=== PATIENT | male | born 1980 | race Caucasian/White ===

== ENCOUNTER 2019-11-18 20:40 | Observation (INO) | payer SELFPAY ==
--- NOTE | ~2019-11-18 | XR_ITS ---
XR abdomen/kub 1V DATE: 11/19/2019 07:21 INDICATION: Glass bile in stomach TECHNIQUE: Portable supine AP view on 11/19/2019 at 0718 hours COMPARISON: None FINDINGS: There is an approximately 1.5 x 5 cm radiopaque foreign body consistent with orally ingeste d glass bile overlying the upper midabdomen, situated within the distal stomach most likely. No evidence of bowel obstruction. The psoas shadows are intact. No visceromegaly or significant abnor mal calcification is noted. IMPRESSION: Radiopaque glass vial overlying the lower gastric body Reviewed, dictated and finalized at [facility]. Reviewed, dictated and finalized at [facility]. NDER GRINDER
--- NOTE | ~2019-11-18 | XR_ITS ---
EXAMINATION: XR chest 2V DATE: 11/18/2019 21:31 INDICATION: Swallowed a glass while. No breathing complaints. TECHNIQUE: PA and lateral views of the chest were obtained. COMPARISON: None FINDINGS: A small glass mild projects over the proximal body of the stomach in the left upper quadrant. Moderat e biapical pleural-parenchymal scarring. Linear discoid atelectasis at the lateral right mid to upper lung zone. No pulmonary edema, pleural effusion or pneumothorax. The cardiomediastinal silhouette is normal. Visualized bones and soft tissues are unremarkable. IMPRESSION: 1. Small glass fall in the proximal stomach. 2. Moderate biapical pleural-parenchymal scarring and linear discoid atelectasis at the right mid to upper lung zone. Reviewed, dictated and finalized at location [facility]. LOGUE COMPILER IMPRESSION: 1. Small glass fall in the proximal stomach. 2. Moderate biapical pleural-parenchymal scarring and linear discoid atelectasi s at the right mid to upper lung zone.
[2019-11-18 20:40] VITALS: BP 123/81; PULSE 117; RESP 18; TEMP 36.7; O2SAT 100
--- NOTE | 2019-11-18 21:15 | ECG_ITS ---
Measurements Intervals [place] Rate: 95 P: 43 IL: 137 QRS: 75 QRSD: 86 T: 49 QT: 305 QTc: 384 Interpretive Statements SINUS RHYTHM NORMAL ECG Electronically Signed On 11-19-2019 7:32:54 FLOW FLOOR ATTENDANT by Gorge Sanchez D.O.
[2019-11-18 21:30] LABS: Basophils Absolute Auto 0.1 K/mm3 (0.0-0.1); Basophils Percent Auto 0.6 % (0.2-1.2); Eosinophils Absolute Auto 0.4 K/mm3 (0-0.3); Eosinophils Percent Auto 2.4 % (0-4.4); Hematocrit 46.6 % (42.0-52.0); Hemoglobin 15.8 g/dL (14.0-18.0); Immature Granulocyte Absolute 0.06 K/mm3 (0.00-0.031); Immature Granulocyte Percent A 0.4 % (0-0.5); Lymphocytes Absolute Auto 1.46 K/mm3 (0.9-3.2); Mean Corpuscular HGB Conc 33.9 g/dl (32-36); Mean Corpuscular Hemoglobin 28.8 pg (26-34); Mean Corpuscular Volume 84.9 fl (80-100); Mean Platelet Volume 10.6 fl (7.4-10.4); Monocytes Absolute Auto 1.1 K/mm3 (0.1-0.6); Monocytes Percent Auto 7.2 % (2.6-8.5); Neutrophils Absolute Auto 11.6 K/mm3 (1.3-6.7); Neutrophils Percent Auto 79.4 % (45.5-73.1); Platelet Count Result 282 k/mm3 (150-375); Red Blood Count 5.49 M/mm3 (4.6-6.20); Red Cell Distribution Width 12.2 % (11.5-14.5); White Blood Count 14.6 K/mm3 (4.5-10.0)
[2019-11-18 21:43] LABS: Acetaminophen < 10 ug/mL (10-30); Ethanol < 10 mg/dL (<10); Salicylate < 1.0 mg/dL (2-20)
[2019-11-18 21:45] LABS: Alanine Aminotransferase 42 U/L (4-50); Albumin Level 4.5 g/dL (3.5-5.1); Alkaline Phosphatase 76 U/L (38-126); Aspartate Amino Transferase 28 U/L (17-59); Bilirubin,Total 0.2 mg/dL (0.2-1.3); Blood Urea Nitrogen 15 mg/dL (9-20); Calcium 9.4 mg/dL (8.4-10.2); Carbon Dioxide 29 mmol/L (22-30); Chloride 99 mmol/L (98-107); Estimated CRCL calculation 86 ml/min; Estimated Glomerular Filt Rate > 60; Glucose 111 mg/dL (75-110); Potassium 4.5 mmol/L (3.4-5.0); Sodium 139 mmol/L (137-145)
--- NOTE | 2019-11-18 22:04 | ED.GENADULT ---
HPI - General Adult General Chief complaint: Unspecified Stated complaint: ingested glass Time Seen by Provider: 11/18/19 21:54 Source: patient Mode of arrival: EMS Limitations: no limitations History of Present Illness HPI narrative: A 39 y/o male presents to the ED, via EMS, with c/o ingested glass. He notes that he swallowed a tiny glass vial 2 hours prior to his ED arrival. Pt adds that the vial may have been laced with meth, but there was nothing inside the glass vial. He denies ABD pain, rashes, CP, and N/V/D. He denies any treatments prior to his arrival. Pt is previously healthy and has no other complaints at this time. Patient denies suicide attempt. He reports he was trying to evade police. complaint: Ingested glass Onset (ago): hour(s) (2) Associated symptoms: denies other symptoms Treatments prior to arrival: none Related Data Allergies Allergy/AdvReac Type Severity Reaction Status Date / Time No Known Allergies Allergy Verified 11/18/19 21:32 Review of Systems Review of Systems: Narrative: CONSTITUTIONAL: Denies fever, chills, or sweats. EYES: Denies visual changes, redness, or discharge. ENT: Denies rhinorrhea, congestion, sore throat, or otalgia. CARDIOVASCULAR: Denies chest pain, palpitations, or edema. RESPIRATORY: Denies cough or dyspnea. GASTROINTESTINAL: Denies abdominal pain, nausea, vomiting, or diarrhea. GENITOURINARY: Denies dysuria or hematuria. SKIN: Denies rash or itching. MUSCULOSKELETAL: Denies back pain, joint pain, or myalgia. NEUROLOGIC: Denies headache, numbness, or weakness. All systems reviewed & are unremarkable except as noted in HPI and below PMFSH Past Medical History Medical History (Updated 11/18/19 @ 22:38 by Jeni Badillo MD) Healthy adult Surgical History Surgical History (Updated 11/18/19 @ 22:10 by Joleen Taylor) No pertinent past surgical history Social History Social History (Updated 11/18/19 @ 22:10 by Joleen Taylor) Substance use: current Substance use type: methamphetamine Exam Narrative: Exam Narrative: GENERAL: Well-appearing, well-nourished, and in no acute distress. HEAD: Normocephalic, atraumatic. EYES: PERRLA and EOMI. ENT: Nares clear, no rhinorrhea or epistaxis. Mucous membranes moist. NECK: Supple. CHEST: Clear to auscultation. No respiratory distress. HEART: Mildly tachycardic with regular rhythm. No murmur heard. Normal peripheral pulses. ABDOMEN: Soft, nontender, nondistended, normal active bowel sounds. EXTREMITIES: Normal range of motion. No edema. SKIN: Warm, dry, no rash. NEURO: No focal deficits. Alert and oriented X3. Course Course Emergency Course: Patient presented for evaluation after ingesting what he is saying is a glass vial of methamphetamine, but reports there was not much drug and it was only a dusting coating the glass container. Patient has no complaints at this time. He denies suicidal attempt. Patient reports he was trying to evade police. He is mildly tachycardic. He has no abdominal pain or vomiting. Patient is not requiring urgent endoscopy. On imaging, the vial is clearly in the stomach. Dr. Angel with gastroenterology consulted, we will obtain serial KUBs, if the patient is able to pass this on his own, he would not require any intervention. Otherwise, patient can be managed symptomatically overnight. He was kept n.p.o. and started on IV maintenance fluids. Consultations Consultation #1: Discussed case with marketing communication manager, Dr. Angel. They recommend a KUB and will see the patient in the morning. Date: 11/18/19 Time: 22:14 Vital Signs Vital signs: Vital Signs Temperature 36.7 C 11/18/19 20:40 Pulse Rate 117 H 11/18/19 20:40 Respiratory Rate 18 11/18/19 20:40 Blood Pressure 123/81 11/18/19 20:40 Pulse Oximetry 100 11/18/19 20:40 Temperature 36.7 C 11/18/19 20:40 Pulse Rate 104 H 11/18/19 22:25 Respiratory Rate 17 11/18/19 22:25 Blood Pressure 106/73 11/18/19 22:2
[2019-11-18 22:25] VITALS: BP 106/73; PULSE 104; RESP 17; O2SAT 23
[2019-11-18 22:34] LABS: Add Urine Microscopic? NO; Appearance Urine Clear (Clear); Bilirubin Urine Negative (Negative); Blood Urine Negative (Negative); Color Urine Yellow (Yellow); Glucose Urine UA Negative (Negative); Ketones Urine Negative (Negative); Leukocyte Esterase Ur Negative LEU/UL (Negative); Nitrate Urine Negative (Negative); Protein Urine Negative (Negative); Urobilinogen Urine Negative mg/dL (<2.0)
[2019-11-18 23:08] LABS: Barbiturate Screen Urine Negative (Negative); Benzodiazepines Screen Urine Negative (Negative)
[2019-11-18 23:13] LABS: Cannabinoid Screen Urine Negative (Negative); Cocaine Screen Urine Negative (Negative); Methadone Screen Urine Negative (Negative); Opiate Screen Urine Negative (Negative); Phencyclidine Screen Urine Negative (Negative)
[2019-11-18 23:32] VITALS: BP 105/66; PULSE 95; RESP 18; TEMP 36.2; O2SAT 100
[2019-11-18 23:33] VITALS: BMI 18.0
--- NOTE | 2019-11-18 23:42 | ADMGEN ---
This patient, Jose Mireles, was admitted to 2 Medical Room 257-01. Patient/family oriented to hospital policies and general routines including ID bracelet, bed and alarms, visiting hours, pain management, procedures, bathroom and other care routines, personal items, smoking policy, room service/diet, and visiting hours. Valuables list has been completed. Information on how to activate the Rapid Response Team has been discussed. Patient/Family are encouraged to report perceived risks to care and to ask questions if they do not understand what they are told or what they should do.
[2019-11-18 23:44] LABS: Amphetamine Screen Urine Positive (Negative)
[2019-11-18] MEDS: LACTATED RINGERS 1,000 ML 125 ML IV CONT (23:44)
[2019-11-19 06:00] VITALS: BP 109/74; PULSE 96; RESP 16; TEMP 36.2; O2SAT 99
[2019-11-19] MEDS: LACTATED RINGERS 1,000 ML 125 ML IV CONT (07:53)
--- NOTE | 2019-11-19 08:09 | WPDGICN ---
Assessment and Plan Additional Plan This is a 39-year-old white male patient I am asked to see at the request of the emergency room. Patient was found to have foreign body in the stomach based on a KUB. Patient reports that he ingested a tiny glass file last evening. It may have been laced with methamphetamine but apparently was empty. He denies any abdominal pain he denies any bleeding. He denies any other complaints. Patient states he has never ingested items like this previously Past medical history is significant he is been healthy. He has no surgical history. Substance abuse includes methamphetamine. He is on no specific medications otherwise. Family history noncontributory. He has no stated drug allergies. Physical exam reveals him to be alert. Vital signs stable. HEENT exam unremarkable. Lungs are clear to auscultation and percussion. Heart is without murmur or extra sounds. Abdominal exam bowel sounds are present soft nontender with no past splenomegaly. KUB reveals form body will discuss further with Radiology whether this remains within the stomach. Impression 1. Foreign body ingestion. 2. Substance abuse. Plan is to proceed with EGD if this appears to be in the stomach. For endoscopic removal. Otherwise follow-up KUBs to document passage distally. Patient may be at risk for obstruction given the size of this vile. GI Consult Note Consult date/time: 11/19/19 08:09 HPI: Jose Mireles is a 39 year old male [facility] Past Medical History Medical History (Updated 11/18/19 @ 22:38 by Jeni Badillo MD) Healthy adult Surgical History Surgical History (Updated 11/18/19 @ 22:10 by Joleen Taylor) No pertinent past surgical history Family History Family History (Updated 11/18/19 @ 23:31 by Shira Diehl RN) Mother Chronic obstructive pulmonary disease Other Diabetes mellitus Social History Social History (Updated 11/18/19 @ 22:10 by Joleen Taylor) Smoking packs per day: 1 Smoking cigarettes per day: 20.0 Smoking status: Current every day smoker Tobacco type: cigarettes Second hand tobacco smoke exposure: Yes Alcohol intake: former Substance use: current Substance use type: methamphetamine Last use: 11/18/19 Gender identity (if verbalized by the patient): Male Spiritual care concerns: No Agree to blood products: Yes Meds Home Medications and Allergies Home Medications Medication Instructions Recorded Confirmed Type No Home Medications 11/18/19 11/18/19 History Allergies Allergy/AdvReac Type Severity Reaction Status Date / Time No Known Allergies Allergy Verified 11/18/19 21:32 Vital Signs Vital Signs - 24 hr 11/18/19 20:40 11/18/19 22:25 11/18/19 23:32 Temperature 36.7 C 36.2 C L Pulse Rate 117 H 104 H 95 Respiratory Rate 18 17 18 Blood Pressure 123/81 106/73 105/66 Pulse Oximetry 100 23 L 100 11/19/19 06:00 Temperature 36.2 C L Pulse Rate 96 Respiratory Rate 16 Blood Pressure 109/74 Pulse Oximetry 99 Results Labs CBC & Chem 7: 11/18/19 21:25 11/18/19 21:25 Labs: Short CBC 11/18/19 Range/Units 21:25 WBC 14.6 H (4.5-10.0) K/mm3 Hgb 15.8 (14.0-18.0) g/dL Hct 46.6 (42.0-52.0) % Plt Count 282 (150-375) k/mm3 BMP 11/18/19 21:25 Sodium 139 Potassium 4.5 Chloride 99 Carbon Dioxide 29 BUN 15 Creatinine 0.90 Glucose 111 H Calcium 9.4 Liver Function 11/18/19 Range/Units 21:25 Total Bilirubin 0.2 (0.2-1.3) mg/dL AST 28 (17-59) U/L ALT 42 (4-50) U/L Alkaline Phosphatase 76 (38-126) U/L Albumin 4.5 (3.5-5.1) g/dL Urine 11/18/19 Range/Units 22:26 Urine Color Yellow (Yellow) Urine Appearance Clear (Clear) Urine pH 6.0 (5.0-9.0) Ur Specific [place] 1.020 (1.001-1.035) Urine Protein Negative (Negative) mg/dL Urine Glucose (UA) Negative (Negative) mg/dL
--- NOTE | 2019-11-19 08:31 | WPDANESEPPF ---
Anes - Initial Pre Proc Eval Date/Time: 11/19/19 08:31 Pre Op Diagnosis: Foreign body, ingestion Patient Data Age: 39 Gender: M Height: 1.85 m Weight: 61.9 kg Last Vital Signs Temp 36.2 C L 11/19/19 06:00 Pulse 96 11/19/19 06:00 Resp 16 11/19/19 06:00 BP 109/74 11/19/19 06:00 Pulse Ox 99 11/19/19 06:00 Allergies Allergy/AdvReac Type Severity Reaction Status Date / Time No Known Allergies Allergy Verified 11/18/19 21:32 Home Medications Medication Instructions Recorded Confirmed Type No Home Medications 11/18/19 11/18/19 History Laboratory Tests 11/18/19 11/18/19 11/18/19 21:25 21:25 21:26 WBC 14.6 K/mm3 H K/mm3 (4.5-10.0) RBC 5.49 M/mm3 M/mm3 (4.6-6.20) Hgb 15.8 g/dL g/dL (14.0-18.0) Hct 46.6 % % (42.0-52.0) MCV 84.9 fl fl (80-100) MCH 28.8 pg pg (26-34) MCHC 33.9 g/dl g/dl (32-36) RDW 12.2 % % (11.5-14.5) Plt Count 282 k/mm3 k/mm3 (150-375) MPV 10.6 fl H fl (7.4-10.4) Immature Gran % (Auto) 0.4 % % (0-0.5) Neut % (Auto) 79.4 % H % (45.5-73.1) Lymph % (Auto) 10.0 % L % (18.3-44.2) [place] % (Auto) 7.2 % % (2.6-8.5) Eos % (Auto) 2.4 % % (0-4.4) Baso % (Auto) 0.6 % % (0.2-1.2) Lymph # (Auto) 1.46 K/mm3 K/mm3 (0.9-3.2) [place] # (Auto) 1.1 K/mm3 H K/mm3 (0.1-0.6) Eos # (Auto) 0.4 K/mm3 H K/mm3 (0-0.3) Baso # (Auto) 0.1 K/mm3 K/mm3 (0.0-0.1) Abs Immat Gran (auto) 0.06 K/mm3 H K/mm3 (0.00-0.031) Absolute Neuts (auto) 11.6 K/mm3 H K/mm3 (1.3-6.7) Absolute Nucleated RBC 0.0 K/mm3 K/mm3 (0.0-0.012) Nucleated RBC % 0.0 % % (0.0-0.2) Sodium 139 mmol/L mmol/L (137-145) Potassium 4.5 mmol/L mmol/L (3.4-5.0) Chloride 99 mmol/L mmol/L (98-107) Carbon Dioxide 29 mmol/L mmol/L (22-30) BUN 15 mg/dL mg/dL (9-20) Creatinine 0.90 mg/dL mg/dL (0.7-1.3) Estim Creat Clear Calc 86 ml/min ml/min Estimated GFR > 60 (59 - ) Glucose 111 mg/dL H mg/dL (75-110) Calcium 9.4 mg/dL mg/dL (8.4-10.2) Total Bilirubin 0.2 mg/dL mg/dL (0.2-1.3) AST 28 U/L U/L (17-59) ALT 42 U/L U/L (4-50) Alkaline Phosphatase 76 U/L U/L (38-126) Total Protein 8.0 g/dL g/dL (6.3-8.2) Albumin 4.5 g/dL g/dL (3.5-5.1) TSH 2.960 uIU/mL uIU/mL (0.465-4.680) Urine Color Urine Appearance Urine pH Ur Specific [place] Urine Protein Urine Glucose (UA) Urine Ketones Ur Blood (Man) Urine Nitrate Urine Bilirubin Urine Urobilinogen Leukocyte Esterase Rfl Salicylates < 1.0 mg/dL L mg/dL (2-20) Urine Opiates Screen Urine Methadone Screen Acetaminophen < 10 ug/mL L ug/mL (10-30) Ur Barbiturates Screen Ur Phencyclidine Scrn Ur Amphetamine Screen U Benzodiazepines Scrn Urine Cocaine Screen U Cannabinoids Screen Ethyl Alcohol < 10 mg/dL mg/dL (<10) 11/18/19 11/18/19 22:26 22:26 WBC RBC Hgb Hct MCV MCH MCHC RDW Plt Count MPV Immature Gran % (Auto) Neut % (Auto) Lymph % (Auto) [place] % (Auto) Eos % (Auto) Baso % (Auto) Lymph # (Auto) [place] # (Auto) Eos # (Auto) Baso # (Auto) Abs Immat Gran (auto) Absolute Neuts (auto) Absolute Nucleated RBC Nucleated RBC % Sodium [place]
--- NOTE | 2019-11-19 08:35 | PC.NURSE ---
To GI Lab per stretcher, IV intact.
[2019-11-19] MEDS: LACTATED RINGERS 1,000 ML 150 ML IV CONT (08:46)
[2019-11-19 08:49] VITALS: BP 116/73; PULSE 83; RESP 16; O2SAT 100
[2019-11-19 09:16] VITALS: BP 87/55; PULSE 87; RESP 18; O2SAT 99
[2019-11-19 09:26] VITALS: BP 88/55; PULSE 78; RESP 18; O2SAT 98
[2019-11-19 09:36] VITALS: BP 106/67; PULSE 83; RESP 20; O2SAT 99
--- NOTE | 2019-11-19 10:27 | PM.SD ---
Same Day Admit/Disch: HPI History of Present Illness Chief complaint: Foreign body, ingestion Narrative: Jose Mireles is a 39 year old male who was in his usual state of health. He had an empty a vial of methamphetamine in his possession. He was in proximity to electrical engineering drafting officer so he decided to swallow the vial. He had no pain. But was concerned so he presented to the emergency department. He underwent an uneventful EGD with removal of the vial. After the procedure he was able to tolerate his diet. He had no GI or complaints otherwise. He denied chest pain abdominal pain diarrhea constipation nausea vomiting fevers or chills hematochezia hematuria dysuria muscle aches or pains. No headaches weakness or numbness. No rash or itching. No gait disturbance. [facility] Past Medical History Medical History (Updated 11/19/19 @ 10:31 by Miguel Ángel Boss MD) Anxiety COPD (chronic obstructive pulmonary disease) Healthy adult HTN (hypertension) Surgical History Surgical History No pertinent past surgical history Family History Family History Mother Chronic obstructive pulmonary disease Other Diabetes mellitus Social History Social History Smoking packs per day: 1 Smoking cigarettes per day: 20.0 Smoking status: Current every day smoker Tobacco type: cigarettes Second hand tobacco smoke exposure: Yes Alcohol intake: former Substance use: current Substance use type: methamphetamine Last use: 11/18/19 Gender identity (if verbalized by the patient): Male Spiritual care concerns: No Agree to blood products: Yes Same Day Admit/Disch: Med Pre-admit Medications Home Medications Medication Instructions Recorded Confirmed Type No Home Medications 11/18/19 11/18/19 History Exam Narrative: Exam Narrative: HEENT: EOMI, PERRL, pharyngeal mucosa pink and intact NECK: No JVD, adenopathy, or thyromegaly CHEST: Clear to auscultation. Normal effort. HEART: NL S1/S2, regular, no murmur ABDOMEN: BS+, soft, nontender, no mass, no bruits EXTREMITIES: No cyanosis, edema, or clubbing NEUROLOGIC: CN intact and symmetric to inspection. MUSCULOSKELETAL: Tone and strength symmetric. PSYCH: Alert. Oriented to person, place, and time. DS: Data Data Completed and Pending Labs on day of discharge: Labs from last 24 hours 11/18/19 11/18/19 11/18/19 22:26 22:26 21:26 WBC RBC Hgb Hct MCV MCH MCHC RDW Plt Count MPV Immature Gran % (Auto) Neut % (Auto) Lymph % (Auto) [place] % (Auto) Eos % (Auto) Baso % (Auto) Lymph # (Auto) [place] # (Auto) Eos # (Auto) Baso # (Auto) Abs Immat Gran (auto) Absolute Neuts (auto) Absolute Nucleated RBC Nucleated RBC % Sodium Potassium Chloride Carbon Dioxide BUN Creatinine Estim Creat Clear Calc Estimated GFR Glucose Calcium Total Bilirubin AST ALT Alkaline Phosphatase Total Protein Albumin TSH Urine Color Yellow Urine Appearance Clear Urine pH 6.0 Ur Specific [place] 1.020 Urine Protein Negative Urine Glucose (UA) Negative Urine Ketones Negative Ur Blood (Man) Negative Urine Nitrate Negative Urine Bilirubin Negative Urine Urobilinogen Negative Leukocyte Esterase Rfl Negative Salicylates < 1.0 L Urine Opiates Screen Negative Urine Methadone Screen Negative Acetaminophen < 10 L Ur Barbiturates Screen Negative Ur Phencyclidine Scrn Negative Ur Amphetamine Screen Positive A U Benzodiazepines Scrn Negative Urine Cocaine Screen Negative U Cannabinoids Screen Negative Ethyl Alcohol < 10 11/18/19 11/18/19 21:25 21:25 WBC 14.6 H RBC 5.49 Hgb 15.8 Hct 46.6 MCV 84.9 MCH 28.8 MCHC
[2019-11-19 10:46] VITALS: BP 101/65; PULSE 80; RESP 16; TEMP 36.2; O2SAT 100
== END 2019-11-19 11:01 | disposition home or self-care (01) ==
LOC: ANHED 22:40 → ANH2MED 23:39
PROVIDERS: Internal Medicine Gastroenterology; Physician Assistant; Admitting Provider Internal Medicine; Emergency Provider Emergency Medicine; Visit Provider Internal Medicine
PROC: 0DJ08ZZ Inspection of Upper Intestinal Tract, Via Natural or Artificial Opening Endoscopic (ICD-10-PCS; CPT 43235; principal; 2019-11-19 08:45)
DX: T18.2XXA Foreign body in stomach, initial encounter (principal); X58.XXXA Exposure to other specified factors, initial encounter; T43.621A Poisoning by amphetamines, accidental (unintentional), initial encounter; F15.10 Other stimulant abuse, uncomplicated; F17.210 Nicotine dependence, cigarettes, uncomplicated; I10 Essential (primary) hypertension; J43.9 Emphysema, unspecified
CPT/HCPCS: 43247; 36415; 71046; 74018; 80053; 80307; 81003; 84443; 85025; 93005; 96360; 96361; 99285; G0378; G0379; J2704; J7120